=== PATIENT | female | born 1990 | race African-American/Black ===

== ENCOUNTER 2019-02-12 12:21 | Emergency (ER) | payer MEDICARE | END 2019-02-12 14:27 | disposition left against medical advice (07) | LOC: D.ER 12:21 | DX: R07.9 Chest pain, unspecified (principal) ==

== ENCOUNTER 2019-10-01 22:48 | Emergency (ER) | payer MEDICARE, MEDICAID ==
[~2019-10-01] VITALS: Ht 160 cm; Wt 204.5 kg
[2019-10-01 22:55] VITALS: Ht 160 cm; Wt 204.5 kg
[2019-10-01] MEDS ORDERED: CYCLOBENZAPRINE10 MG PO (23:24)
[2019-10-01] MEDS ORDERED: TORADOL10 MG PO (23:24)
[2019-10-02 00:29] VITALS: BP 133/77
== END 2019-10-02 00:29 | disposition home or self-care (01) ==
LOC: D.ER 22:48
DX: S39.012A Strain of muscle, fascia and tendon of lower back, initial encounter (principal); X58.XXXA Exposure to other specified factors, initial encounter; M51.34 Other intervertebral disc degeneration, thoracic region; M41.54 Other secondary scoliosis, thoracic region; J45.909 Unspecified asthma, uncomplicated

== ENCOUNTER 2020-07-03 02:52 | Emergency (ER) | payer MEDICARE, MEDICAID ==
[~2020-07-03] VITALS: Ht 160 cm; Wt 204.5 kg
[~2020-07-03 02:52] MED LIST: AMOXICILLIN500 M1 PO; AZITHROMYCIN500 MG PO; CYCLOBENZAPRINE10 MG PO; ROBITUSSIN DM 110 ML PO; TORADOL10 MG PO; ZOFRAN ODT4 MG/UDTAB PO
[2020-07-03 03:25] VITALS: Ht 160 cm; Wt 204.5 kg
[2020-07-03 03:40] LABS: BASOPHILS 0.5 % (0-2); EOSINOPHILS 6.2 % (0-7); HEMATOCRIT 39.8 % (36.0-48.0); HEMOGLOBIN 13.1 g/dL (12-16); IMMATURE GRANULOCYTES 0.2 % (0-5); LYMPHOCYTES 41.7 % (15-50); MCHC 32.9 g/dL (31.0-37.0); MCV 88.2 fL (80.0-100.0); MEAN PLATELET VOLUME 10.7 fL (7.4-10.4); MONOCYTES 10.4 % (2-11); PLATELET COUNT 308 10x3/uL (130-400); RBC 4.51 10x6/uL (4.00-5.40); RDW 14.2 % (11.5-14.5); WBC 9.5 10x3/uL (4.8-10.8)
[2020-07-03 03:45] LABS: CALC OSMOLALITY 284 mosm/kg (275-300); CARBON DIOXIDE 28.4 mmol/L (21.0-32.0); CHLORIDE - SERUM 106 mmol/L (98-107); GLUCOSE 126 mg/dL (74-106); POTASSIUM - SERUM 3.3 mmol/L (3.5-5.1); SODIUM 142 mmol/L (136-145); UREA NITROGEN 12 mg/dL (7-18); eGFR NON AFRICAN AMERICAN 70 mL/min (90-120)
[2020-07-03 03:45] LABS: BILIRUBIN NEGATIVE (NEGATIVE); KETONE NEGATIVE (NEGATIVE); NITRITE NEGATIVE (NEGATIVE); UROBILINOGEN NORMAL mg/dL (< 2)
[2020-07-03 03:47] LABS: BACTERIA FEW /HPF (NONE SEEN); EPITHELIAL CELLS 0-5 /hpf (0-5); WHITE CELLS - URINE 0-5 /HPF (0-4)
[2020-07-03 03:48] LABS: HCG SERUM NEGATIVE (NEGATIVE)
[2020-07-03 03:54] LABS: INR 0.99 (0.85-1.17)
[2020-07-03 03:55] LABS: APTT 27.2 SECONDS (22.8-39.4)
[2020-07-03 03:56] LABS: D-DIMER-QUANTITATIVE 0.72 ug/mLFEU (0.20-0.54)
[2020-07-03 04:11] LABS: ALBUMIN 3.4 g/dL (3.4-5.0); ALKALINE PHOSPHATASE 94 U/L (30-120); ALT (SGPT) 20 U/L (10-68); BILIRUBIN - TOTAL 0.26 mg/dL (0.2-1.3); CKMB 0.4 U/L (0.0-3.6); CREATINE KINASE 163 UL (21-215); MAGNESIUM - SERUM 1.7 mg/dL (1.8-2.4); PRO BNP 9 pg/mL (0-125); PROTEIN - SERUM 6.7 g/dL (6.4-8.2); TROPONIN-I < 0.017 ng/mL (0.000-0.060)
[2020-07-03 06:48] VITALS: BP 140/92
== END 2020-07-03 06:51 | disposition home or self-care (01) ==
LOC: D.ER 02:52
PROVIDERS: Family Medicine
DX: R06.02 Shortness of breath (principal); F41.9 Anxiety disorder, unspecified; R60.9 Edema, unspecified; E66.01 Morbid (severe) obesity due to excess calories; J45.909 Unspecified asthma, uncomplicated